=== PATIENT | male | born 1945 | race African-American/Black ===

== ENCOUNTER 2017-04-19 15:37 | Inpatient (IN) ==
[2017-04-19] MEDS ORDERED: SODIUM CHLORIDE 0.9% 1,000 ML IV STA (16:03)
[2017-04-19] MEDS ORDERED: NITROGLYCERIN 2% OINT 1 INCH/GM PACK TOP STA (16:03)
[2017-04-19] MEDS ORDERED: ASPIRIN 325 MG TABLET PO STA (16:03)
[2017-04-19] MEDS ORDERED: MORPHINE 2 MG/1 ML SYRINGE IV STA (16:03)
[2017-04-19] MEDS ORDERED: ONDANSETRON 4 MG/2 ML VIAL IV STA (16:03)
[2017-04-19] MEDS ORDERED: NITROGLYCERIN 2% OINT 1 INCH/GM PACK TOP ONE (16:20)
[2017-04-19] MEDS ORDERED: ONDANSETRON 4 MG/2 ML VIAL ONE (16:20)
[2017-04-19] MEDS ORDERED: MORPHINE 2 MG/1 ML SYRINGE ONE (16:21)
--- NOTE | 2017-04-19 16:22 | XRay Report ---
XR chest 1V portable Indication: Chest pain Comparison: 17 May 2016 Findings: The heart and mediastinum are stable in size and configuration with cardiac surgery changes. The pulmonary vascularity is slightly increased. No other lung infiltrates, effusions, pneumothorax or other abnormality is demonstrated. Impression: Slight increase pulmonary vascularity, could indicate mild cardiac decompensation. PROCEDURE INTERPRETED AT [facility] DEPARTMENT OF RADIOLOGY Final Report Signed by: Dr. Andrea Aranda
--- NOTE | 2017-04-19 16:36 | Emergency Department Note ---
Cynthia Sanchez Gwan, am scribing for, and in the presence of, Raúl Griffin MD 16:12. Elias Sanchez Robert M, MD, personally performed the services described in this documentation, ascribed by Sam Marie in my presence, and it is both accurate and complete 636 . Arrival - Arrival Chief Complaint: Chest Pain Stated Complaint: CHEST PAIN ED Nursing Triage Note: PT C/O CHEST PAIN SINCE 1200. PAIN BEGAN IN HIS BACK BETWEEN SHOULDER BLADES AND MOVED TO HIS FRONT, LOWER CHEST/EPIGASTRIC. + DIAPHORESIS AND NAUSEA AT ONSET OF PAIN BUT NOT OBSERVED ON EMS ARRIVAL. ASA 342MG PO GIVEN PER EMS. Mode of Arrival: Stretcher Limitations: No Limitations Source: Patient, Old Records Reviewed, RN Notes Reviewed Time Seen by Provider: 04/19/17 16:02 - History of Present Illness HPI Narrative: Patient is a 71 y/o black male, with a hx of RI and CABG, who presents to the ED with a c/o chest pain with an onset 1200 today. Patient stated that his discomfort began in his back between his shoulder blades and radiated to his chest . He describes his pain as sharp and said that his associated sxs have been diaphoresis and nausea. EMS confirmed that pt was given 342mg ASA en route with some relief. He confirmed that he has a PMHx of Appendectomy and Bypass performed by Dr. Byrd. He denies any vomiting, abd surgery or having this happen before. No other problems/complaints reported in ED. Onset (ago): hour(s) Consistency: constant Severity: moderate Allergies/Adverse Reactions: Allergies Allergy/AdvReac Type Severity Reaction Status Date / Time No Known Allergies Allergy Verified 04/19/17 15:54 Home Medications: Home Medications Medication Instructions Recorded Confirmed Type Bicalutamide [Casodex] 50 mg PO DAILY 05/08/16 05/08/16 History Omeprazole 20 mg PO DAILY 05/08/16 05/08/16 History Promethazine HCl 25 mg PO Q4-6H 05/08/16 05/08/16 History Tamsulosin [Flomax] 0.4 mg PO DAILY 05/08/16 05/08/16 History amLODIPine [Norvasc] 5 mg PO DAILY 05/08/16 05/08/16 History predniSONE [Dayron] 5 mg PO DAILY 05/08/16 05/08/16 History Theophylline ER Cap (24 Hr) 400 mg PO DAILY 05/15/16 05/15/16 History [Hal-24] Aspirin EC Tab 325 mg PO DAILY tablet 05/18/16 Rx Atorvastatin [Lipitor] 40 mg PO BEDTIME #30 tablet 05/18/16 Rx Bicalutamide [Casodex] 50 mg PO DAILY tablet 05/18/16 Rx Metoprolol Tartrate Tab [Lopressor 25 mg PO BID #60 tablet 05/18/16 Rx Tab] Tamsulosin [Flomax] 0.4 mg PO DAILY capsule 05/18/16 Rx Theophylline ER Cap (24 Hr) 400 mg PO DAILY capsule 05/18/16 Rx [Hal-24] amLODIPine [Norvasc] 5 mg PO DAILY tablet 05/18/16 Rx Review of System - Review of System 12 point system: reviewed and no additional remarkable complaints except as stated - Review of System Constitutional: Present: as per HPI, diaphoresis. Absent: chills, fever Eyes: Absent: discharge, pain Head/Ears/Nose/Throat: Absent: earache Respiratory: Absent: cough Cardiovascular: Present: as per HPI, chest pain Gastrointestinal: Present: as per HPI, nausea. Absent: abdominal pain, vomiting , diarrhea Genitourinary male: Absent: urgency Musculoskeletal: Present: as per HPI, back pain. Absent: arm pain, leg pain Skin: Absent: rash, lesions Neurological: Absent: headache, weakness Psychiatric: Absent: anxiety, depression Medical,Surgical,& Family Hx - Medical History Cardio: History of: Hypertension, [place] Respiratory: History of: Asthma Other: History of: Cancer (lymphatic) - Surgical History Cardiac Surgeries: Sugical HX of: Cardiac Catheterization, Cardiac Surgery (CABG ) Abdominal Surgeries: Surgical HX of: Appendectomy Reproductive Surgeries: Surgical HX of;: Prostate Surgery - Family History Family History: Reports;: Family Cancer (prostate ca brother and son), Family Diabetes (mother and brother), Family Hypertension (mother brother son) - Social History Smoking Status: Never smoker Frequency of Alcohol Use: None Type of Drug Use: None Exam Vital Signs: Vital Signs Temperature 97.2 F L 04/19/17 15:37 Pulse Rate 75 04/19/17 15:37 Respiratory Rate 18 04/19/17 16:06 Blood Pressure 156/74 04/19/17 15:37 O2 Sat by Pulse Oximetry 98 04/19/17 15:37 - General General appearance: alert, in no apparent distress - Head Head exam: Present: atraumatic, normocephalic - Eye Eye exam: Present: normal appearance, PERRL, EOMI - ENT ENT exam: Present: normal oropharynx, mucous membranes moist, TM's normal bilaterally, normal external ear exam - Neck Neck exam: Present: full ROM, trachea midline. Absent: tenderness - Chest Chest inspection: Present: symmetric chest wall rise, other (Patient has a scar in center of chest consistent with previous Bypass surgery. ). Absent: tenderness - Respiratory Respiratory exam: Present: normal lung sounds bilaterally. Absent: respiratory distress - Cardiovascular Cardiovascular exam: Present: regular rate, normal rhythm, normal heart sounds. Absent: murmur - Abdominal Exam Abdominal exam: Present: soft, normal bowel sounds, other (Patient has a scar to RLQ consistent with previous Appendectomy). Absent: tenderness - Extremities Exam Extremities exam: Present: full ROM. Absent: tenderness - Back Exam Back exam: Present: full ROM. Absent: tenderness - Neurological Exam Neurological exam: Present: alert, oriented X3, CN II-XII intact. Absent: motor sensory deficit - Psychiatric Psychiatric exam: Present: normal affect, normal mood - Skin Skin exam: Present: warm, dry, intact, normal color Course - Consultations Consultation #1: The hospitalist service will admit the patient. Time: 18:07 Results - Labs CBC & BMP: 04/19/17 16:39 04/19/17 16:39 Disposition Clinical Impression: Chest pain, Hypertension, Coronary artery disease, Dyslipidemia Case discussed with: patient, patient's family Disposition: Disch To Home/Self Care Condition: Stable Time of Disposition: 18:07
[2017-04-19 16:49] LABS: Basophils % 0.5 % (0.0-0.8); Eosinophils # 0.1 10*3/uL (0.0-0.87); Eosinophils % 1.5 % (0.00-10.9); Hematocrit 36.4 VOL% (42.0-52.0); Hemoglobin 12.3 GM/DL (14.0-18.0); Immature Granulocytes % 0.8 %; Immature Granulocytes Absolute 0.07 #; Lymphocytes # 0.6 10*3/uL (1.4-4.0); Lymphocytes % 7.1 % (21.2-54.2); Mean Corpuscular HGB Conc 33.8 GM/DL (32-36); Mean Corpuscular Hemoglobin 25 PG (27-34); Mean Corpuscular Volume 73.7 FL (87-102); Mean Platelet Volume 9.5 FL (9.6-12.0); Monocytes # 0.5 10*3/uL (0.11-0.8); Monocytes % 6.2 % (1.7-12.7); Neutrophils # 7.4 10*3/uL (1.4-7.4); Neutrophils % 83.9 % (38.7-73.9); Platelet Count 247 T/CUMM (130-400); Red Blood Count 4.94 MC/CUMM (3.8-5.5); White Blood Count 8.8 T/CUMM (4-12)
[2017-04-19 16:59] LABS: PT Patient Result 10.8 SECS
[2017-04-19 17:13] LABS: Albumin 3.5 G/DL (3.4-5.0); Bilirubin,Total 0.4 MG/DL (0.2-1.0); Magnesium 2.3 MG/DL (1.8-2.4); Osmolality,Calculated 280.5 MOS/KG (273-304); Potassium 3.3 MMOL/L (3.5-5.1); Total Protein 6.5 G/DL (6.4-8.3)
[2017-04-19 17:14] LABS: Apearance,Urine CLEAR (Clear); Bilirubin,Urine Negative (Negative); Blood, Urine Negative (Negative); Glucose,Urine (UA) Negative (Negative); Ketones,Urine Negative (Negative); Nitrite,Urine Negative (Negative); Protein,Urine Negative; RBC,Urine <1 /HPF (0-4); Urine Color Yellow (Yellow); Urine Specific Gravity 1.012 (1.001-1.035); Urine Urobilinogen < 2.0 EU/DL (0.2-1.0); WBC,Urine <1 /HPF (0-6)
--- NOTE | 2017-04-19 18:36 | CT Report ---
CT chest PE study Indication: Right-sided chest pain. CT CHEST WITH CONTRAST, PE PROTOCOL DLP: 435 mGy*cm. One or more of the following dose reduction techniques was used: Automated exposure control, adjustment of the mA and/or kV according the patient size, or use of iterative reconstruction techniques. Comparison: None Technique: Axial CT images of the chest were obtained during the pulmonary arterial phase of contrast injection. Coronal reconstructions were provided. Omnipaque 350, 80 cc. Findings: No pulmonary artery filling defects to the segmental level. Main pulmonary artery is normal in size. Heart size is normal. Postoperative changes median sternotomy are present. Subcarinal nodes are enlarged, 16 mm short axis. Bilateral hilar lymphadenopathy is present, largest node on the right 15 mm short axis and largest on the left 11 mm. There is a band of parenchymal scarring involving the right upper lobe laterally. Innumerable 5 and 6 mm pulmonary nodules are distributed throughout both lungs diffusely. There is peribronchial thickening in the lung bases, much worse on the right, with stranding extending to the posterior right lung base. At least one calcified granulomas present within the right middle lobe. Pleural spaces are clear. Limited views of the upper abdomen demonstrate hypodensities on both kidneys, likely cysts, largest is on the left measuring 33 mm. Calcified gallstone noted as well. Upper abdomen is otherwise unremarkable. Impression: 1. No evidence of PE. 2. Subcarinal and bilateral hilar lymphadenopathy. Interstitial lung disease with coarsened interstitial markings throughout, scarring of the right upper lobe tracking laterally, and innumerable subcentimeter pulmonary nodules bilaterally. Three-month follow-up CT chest necessary. 3. Right greater than left bibasilar peribronchial thickening with additional strand-like infiltrate in the posterior right lung base, consistent with pneumonitis. Suspect aspiration. 4. Calcified gallstone. 5. Renal cysts. PROCEDURE INTERPRETED AT [facility] DEPARTMENT OF RADIOLOGY Final Report Signed by: Anthony Treadwell M.D.
--- NOTE | 2017-04-19 18:55 | Hospitalist History & Physical ---
Assessment and Plan (1) Epigastric abdominal pain Status: Acute Assessment and plan: protonix bid, GI cocktail Current Visit: Yes (2) Asthma with exacerbation Status: Chronic Assessment and plan: nasima nguyễn Current Visit: No Qualifiers: Asthma severity: mild intermittent Qualified Code(s): J45.21 - Mild intermittent asthma with (acute) exacerbation (3) Hypertension Status: Chronic Assessment and plan: cont metoprolol and losartan, need home meds verified Current Visit: Yes Qualifiers: Hypertension type: essential hypertension Qualified Code(s): I10 - Essential (primary) hypertension (4) Coronary artery disease Status: Chronic Assessment and plan: serial troponins, EKGs Current Visit: Yes Qualifiers: Coronary Disease-Associated Artery/Lesion type: [place] artery [place] vs. transplanted heart: [place] heart History of Present Illness Chief complaint: epigastric pain History of present illness: Mr. West is a 71 year old black male, with a hx of [place] and CABG, who presents to the ED with a c/o epigastric pain with an onset 1200 today. Patient stated that his discomfort began in his back between his shoulder blades then resolved. He describes his pain as sharp pain that did not improve with belching. He has had EGD at [facility] in the past. Patient has some questionable pulmonary nodules on chest x-ray. chest CT is done but reading is pending. Patient reports seeing Dr. Navas last week they are already aware of the pulmonary nodules and Dr. Navas feels they are scar tissue and no further workup is necessary. Home Medications Medication Instructions Recorded Confirmed Type Bicalutamide [Casodex] 50 mg PO DAILY 05/08/16 05/08/16 History Omeprazole 20 mg PO DAILY 05/08/16 05/08/16 History Promethazine HCl 25 mg PO Q4-6H 05/08/16 05/08/16 History Tamsulosin [Flomax] 0.4 mg PO DAILY 05/08/16 05/08/16 History amLODIPine [Norvasc] 5 mg PO DAILY 05/08/16 05/08/16 History predniSONE [Dayron] 5 mg PO DAILY 05/08/16 05/08/16 History Theophylline ER Cap (24 Hr) 400 mg PO DAILY 05/15/16 05/15/16 History [Hal-24] Aspirin EC Tab 325 mg PO DAILY tablet 05/18/16 Rx Atorvastatin [Lipitor] 40 mg PO BEDTIME #30 tablet 05/18/16 Rx Bicalutamide [Casodex] 50 mg PO DAILY tablet 05/18/16 Rx Metoprolol Tartrate Tab [Lopressor 25 mg PO BID #60 tablet 05/18/16 Rx Tab] Tamsulosin [Flomax] 0.4 mg PO DAILY capsule 05/18/16 Rx Theophylline ER Cap (24 Hr) 400 mg PO DAILY capsule 05/18/16 Rx [Hal-24] amLODIPine [Norvasc] 5 mg PO DAILY tablet 05/18/16 Rx Allergies Allergy/AdvReac Type Severity Reaction Status Date / Time No Known Allergies Allergy Verified 04/19/17 15:54 Medical,Surgical,& Family Hx - Medical History Cardio: History of: Hypertension, [place] Respiratory: History of: Asthma Other: History of: Cancer (lymphatic) - Surgical History Cardiac Surgeries: Sugical HX of: Cardiac Catheterization, Cardiac Surgery (CABG ) Abdominal Surgeries: Surgical HX of: Appendectomy Reproductive Surgeries: Surgical HX of;: Prostate Surgery - Family History Family History: Reports;: Family Cancer (prostate ca brother and son), Family Diabetes (mother and brother), Family Hypertension (mother brother son) - Social History Smoking Status: Never smoker Frequency of Alcohol Use: None Type of Drug Use: None Marital Status: Lives With:: Spouse Functional capacity: independent ambulation - Constitutional Constitutional: Present: headache(s). Absent: fatigue, fever(s), weakness - EENT Eyes: Absent: blurry vision, diplopia Ears: Absent: decreased hearing, ear discharge Nose, mouth and throat: Present: headache(s). Absent: sore throat - Cardiovascular Cardiovascular: Absent: chest pain at rest, chest pain with activity, dyspnea, dyspnea on exertion, edema - Respiratory Respiratory: Absent: dyspnea, dyspnea on exertion - Gastrointestinal Gastrointestinal: Present: abdominal pain, heartburn. Absent: constipation, diarrhea, hematochezia, nausea, vomiting - Genitourinary Genitourinary: Absent: difficulty urinating, dysuria - Neurological Neurological: Present: headache(s). Absent: syncope - Psychiatric Psychiatric: Absent: anxiety, depression - Endocrine Endocrine: Absent: cold intolerance, fatigue - Hematologic/Lymphatic Hematologic/Lymphatic: Absent: easy bleeding, easy bruising Exam - Constitutional Vitals: Period Temp Pulse Resp BP Sys/Perez Pulse Ox Last 24 Hr 97.2 F-97.2 F 65-79 16-18 111-181/59-82 96-100 General appearance: normal weight, no acute distress - Head Head exam: Present: normal inspection, normocephalic - Eye Eye exam: Present: EOMI. Absent: scleral icterus Pupils: Present: ANUJA, normal accommodation - ENT ENT exam: Present: normal exam, normal external ear exam - Neck Neck exam: Absent: lymphadenopathy, thyromegaly - Respiratory Respiratory exam: Present: clear to auscultation bilaterally. Absent: rhonchi, wheezes - Cardiovascular Cardiovascular exam: Present: regular rate and rhythm. Absent: systolic murmur - GI/Abdominal GI/Abdominal exam: Present: normal bowel sounds, tenderness, soft - Extremities Exam Extremities exam: Present: normal inspection, normal capillary refill - Neurological Exam Neurological exam: Present: alert, oriented X3, CN II-XII intact, reflexes normal. Absent: motor sensory deficit - Psychiatric Psychiatric exam: Present: normal affect, normal mood - Skin Skin exam: Present: normal color, warm Results - Labs CBC & BMP: 04/19/17 16:39 04/19/17 16:39 Lab Results: I have reviewed the past 24 hour labs - EKG EKG shows: sinus rhythm (qwaves in inferior leads ) - Diagnostic Findings Procedure: Chest x-ray: report reviewed by me (pulmonary edema ), CT - chest: report reviewed by me (pul nodules, hilar lymphadeonpathy and ILD, no PE)
[2017-04-19] MEDS ORDERED: POTASSIUM CHLORIDE 20 MEQ TABLET PO ONE (19:15)
[2017-04-19] MEDS ORDERED: MAGNESIUM HYDROXIDE SUSP 30 ML UDCUP PO PRN (20:06)
[2017-04-19] MEDS ORDERED: BISACODYL 5 MG TABLET PO PRN (20:06)
[2017-04-19] MEDS ORDERED: ONDANSETRON 4 MG/2 ML VIAL IV PRN (20:06)
[2017-04-19] MEDS ORDERED: ZALEPLON 5 MG CAPSULE PO PRN (20:06)
[2017-04-19] MEDS ORDERED: POTASSIUM CHLORIDE 20 MEQ TABLET PO PRN ×2 (20:06)
[2017-04-19] MEDS ORDERED: ALUM/MAG/SIMETH/LIDO VISC 1:1 30 ML BOTTLE PO STA (20:15)
[2017-04-19] MEDS: MOMETASONE/FORMOTEROL 200-5 INHALER 8.8 GM INH SCH (21:35)
[2017-04-19] MEDS: ENOXAPARIN 40 MG/0.4 ML SYRINGE SUBCUT SCH (21:36)
[2017-04-19] MEDS: ATORVASTATIN 40 MG TABLET PO SCH (21:36)
[2017-04-19] MEDS: METOPROLOL TARTRATE 25 MG TABLET PO SCH (21:36)
[2017-04-19] MEDS: PANTOPRAZOLE 40 MG TABLET PO SCH (21:36)
[2017-04-19] MEDS: ALBUTEROL 0.63 MG/3 ML NEB RESP TX SCH (23:00)
[2017-04-20 02:40] LABS: Risk Ratio 4.23
[2017-04-20] MEDS: ALBUTEROL 0.63 MG/3 ML NEB RESP TX SCH ×6 (03:00→23:57)
--- NOTE | 2017-04-20 06:19 | EKG Report ---
Stationary ECG Study [facility] Test Date: 04/20/2017 2:08:13 AM Pat Name: HIRO MURDOCK Department: Room: 421 Gender: M Document Review Attorney: DEVANG : 1945 Requested by: Megan Suárez Order Number: [id number] Reading MD: MARITZA SINGLETARY Intervals [place] Rate: 57 P: 12 [place]: 146 QRS: 35 QRSD: 105 T: -27 QT: 442 QTc: 435 Interpretive Statements SINUS RHYTHM NONSPECIFIC T-WAVE ABNORMALITY Electronically Signed On 04-21-17 07:59:47 CDT by MARITZA SINGLETARY [email or web address]
--- NOTE | 2017-04-20 06:21 | EKG Report ---
Stationary ECG Study [facility] Test Date: 04/19/2017 11:14:49 PM Pat Name: HIRO MURDOCK Department: Room: 421 Gender: M Advertising Editor: DEVANG : 1945 Requested by: Megan Suárez Order Number: [id number] Reading MD: KELLIE SEPULVEDA Intervals [place] Rate: 57 P: 48 [place]: 145 QRS: 39 QRSD: 98 T: 86 QT: 436 QTc: 430 Interpretive Statements SINUS RHYTHM Electronically Signed On 04-20-17 17:13:35 CDT by KELLIE SEPULVEDA [email or web address]
--- NOTE | 2017-04-20 06:21 | EKG Report ---
Stationary ECG Study [facility] Test Date: 04/19/2017 8:40:30 PM Pat Name: HIRO MURDOCK Department: Room: 421 Gender: M New Accounts Banking Representative: DEVANG : 1945 Requested by: Megan Suárez Order Number: [id number] Reading MD: KELLIE SEPULVEDA Intervals [place] Rate: 71 P: 48 NE: 135 QRS: 21 QRSD: 101 T: 106 QT: 394 QTc: 416 Interpretive Statements SINUS RHYTHM NONSPECIFIC T-WAVE ABNORMALITY Electronically Signed On 04-20-17 17:10:53 CDT by KELLIE SEPULVEDA [email or web address]
[2017-04-20] MEDS: BICALUTAMIDE 50 MG TABLET PO SCH (08:44)
[2017-04-20] MEDS: LOSARTAN 50 MG TABLET PO SCH (08:44)
[2017-04-20] MEDS: TAMSULOSIN 0.4 MG CAPSULE PO SCH (08:44)
[2017-04-20] MEDS: PANTOPRAZOLE 40 MG TABLET PO SCH ×2 (08:45→20:50)
[2017-04-20] MEDS: METOPROLOL TARTRATE 25 MG TABLET PO SCH ×2 (08:45→20:50)
[2017-04-20] MEDS: MOMETASONE/FORMOTEROL 200-5 INHALER 8.8 GM INH SCH ×2 (08:45→20:51)
--- NOTE | 2017-04-20 09:07 | EKG Report ---
Stationary ECG Study [facility] Test Date: 04/19/2017 3:43:41 PM Pat Name: HIRO MURDOCK Department: Room: 421 Gender: M Load Dropper: : 1945 Requested by: Raúl Griffin Order Number: [id number] Reading MD: KELLIE SEPULVEDA Intervals [place] Rate: 76 P: 48 [place]: 134 QRS: 17 QRSD: 113 T: 93 QT: 313 QTc: 344 Interpretive Statements SINUS RHYTHM POSSIBLE INFERIOR MYOCARDIAL INFARCTION, PROBABLY OLD Electronically Signed On 04-20-17 17:06:39 CDT by KELLIE SEPULVEDA [id number]
--- NOTE | 2017-04-20 10:08 | Gastrointestinal Consult Note ---
<Jihan Bajwa - Last Filed: 04/20/17 09:45> Assessment and Plan (1) Epigastric abdominal pain Status: Acute Assessment and plan: 04/20-sudden onset of epigastric pain radiating to back between shoulder blades with prior history of GERD. History of esophageal stricture in the past. Not to be felt of cardiac origin at this time. Denies dysphagia. Will consider EGD on tomorrow to further evaluate. [facility] records pending from recent endoscopy. Plan addendum followed by Dr. Rosales. Current Visit: Yes History of Present Illness Chief complaint: Epigastric pain History of present illness: Mr. West is a 71 year old male who was admitted to the hospital with onset of epigastric pain. Pt is at bedside and assists in history taking. Patient was in usual state of health until yesterday afternoon. Patient states that shortly after eating lunch yesterday he had a fairly sudden onset of pain in his epigastric region that radiated around to his back and into his shoulder blades. He states he also has some nausea however no vomiting associated with this. Patient has a history of coronary artery disease with a CABG in the past year and his states that she became concerned due to his prior history with this. The pain began to ease off however she decided to bring him into the ER for further evaluation regardless. Upon evaluation, patient was felt that this was not of cardiac origin therefore GI consult for further evaluation. Patient has a long-standing history of GERD and as of recent has had his medication changed due to not controlled. He was recently placed on AcipHex by his PCP. Patient states that the pain he had on yesterday felt very similar to the GERD that he has had in the past. She denies any other symptoms associated with this including palpitations or shortness of breath. Patient has a prior history of as well as esophageal stricture with dilation in the past. He has most recently been seen at [facility] for his GI evaluations however these records are pending at this time. He has a prior history of lymphoma, head and neck cancer however he has been in remission from this for many years, following radiation treatment initially. He also has a recent history of prostate cancer with radiation treatment last year and now currently in remission from this as well. Denies any melena, hematochezia, recent weight loss. Denies any dysphagia. Notation also of pulmonary nodules on chest x-ray with chest CT showing pneumonitis, possibly aspiration origin, and calcified gallstone. He is currently on Lovenox injections. Home Medications Medication Instructions Recorded Confirmed Type Omeprazole 20 mg PO DAILY 05/08/16 04/19/17 History Theophylline ER Cap (24 Hr) 400 mg PO DAILY 05/15/16 04/19/17 History [Hal-24] Aspirin EC Tab 325 mg PO DAILY tablet 05/18/16 04/19/17 Rx Bicalutamide [Casodex] 50 mg PO DAILY tablet 05/18/16 04/19/17 Rx Tamsulosin [Flomax] 0.4 mg PO DAILY capsule 05/18/16 04/19/17 Rx Furosemide Tab [Lasix Tab] 40 mg PO DAILY 04/19/17 04/19/17 History Potassium Chloride 20 meq PO DAILY 04/19/17 04/19/17 History Rabeprazole Sodium 20 mg PO DAILY 04/19/17 04/19/17 History Allergies Allergy/AdvReac Type Severity Reaction Status Date / Time No Known Allergies Allergy Verified 04/19/17 20:40 Medical,Surgical,& Family Hx - Medical History Cardio: History of: Hypertension, [place] Neurology: No history of: Dementia, Seizures, TIA Respiratory: History of: Asthma Gastrointestinal: History of: GERD Other: History of: Cancer (lymphatic, prostate) - Surgical History Cardiac Surgeries: Sugical HX of: Cardiac Catheterization, Cardiac Surgery ( CABG May 10 2016) Abdominal Surgeries: Surgical HX of: Appendectomy, Colonoscopy (2015), EGD (2015 ) Reproductive Surgeries: Surgical HX of;: Prostate Surgery (Radiation) - Family History Family History: Reports;: Family Cancer (prostate ca brother and son), Family Diabetes (mother and brother), Family Hypertension (mother brother son) - Social History Smoking Status: Never smoker Frequency of Alcohol Use: None Type of Drug Use: None 12 point system: reviewed and no additional remarkable complaints except as stated - Constitutional Constitutional: Present: as per HPI - EENT Eyes: Present: as per HPI Ears: Present: as per HPI Nose, mouth and throat: Present: as per HPI - Cardiovascular Cardiovascular: Present: as per HPI - Respiratory Respiratory: Present: as per HPI - Gastrointestinal Gastrointestinal: Present: as per HPI, abdominal pain (Epigastric pain), heartburn - Genitourinary Genitourinary: Present: as per HPI - Musculoskeletal Musculoskeletal: Present: as per HPI - Neurological Neurological: Present: as per HPI - Psychiatric Psychiatric: Present: as per HPI - Endocrine Endocrine: Present: as per HPI - Hematologic/Lymphatic Hematologic/Lymphatic: Present: as per HPI Exam - Constitutional Vitals: Period Temp Pulse Resp BP Sys/Perez Pulse Ox Last 24 Hr 97.2 F-98.7 F 58-79 16-20 94-181/55-82 92-100 General appearance: normal weight, no acute distress - Head Head exam: Present: normal inspection, normocephalic - Eye Eye exam: Present: other (Lids and conjunctive are unremarkable). Absent: scleral icterus - ENT ENT exam: Present: normal exam, normal oropharynx - Neck Neck exam: Present: normal inspection - Respiratory Respiratory exam: Present: clear to auscultation bilaterally. Absent: rales, rhonchi, wheezes - Cardiovascular Cardiovascular exam: Present: regular rate and rhythm. Absent: diastolic murmur , JVD, systolic murmur - GI/Abdominal GI/Abdominal exam: Present: normal bowel sounds, soft. Absent: ascites, distended, mass, organomegaly, tenderness - Extremities Exam Extremities exam: Present: normal inspection, full ROM - Back Exam Back exam: Present: normal inspection - Neurological Exam Neurological exam: Present: alert, oriented X3 - Psychiatric Psychiatric exam: Present: normal affect, normal mood - Skin Skin exam: Present: normal color, warm, dry Results - Labs CBC & BMP: 04/19/17 16:39 04/19/17 16:39 Lab Results: I have reviewed the past 24 hour labs <Yony Rosales - Last Filed: 04/20/17 18:03> History of Present Illness Chief complaint: 3030 History of present illness: Mr. West is a 71 year old male Exam - Constitutional Vitals: Period Temp Pulse Resp BP Sys/Perez Pulse Ox Last 24 Hr 97.6 F-98.7 F 58-75 10-20 94-128/55-69 92-99 Results - Labs CBC & BMP: 04/19/17 16:39 04/19/17 16:39
[2017-04-20] MEDS: LEVOFLOXACIN INJ 500 MG in PREMIX 1 EACH IV SCH (10:25)
--- NOTE | 2017-04-20 13:35 | Hospitalist Progress Note ---
Assessment and Plan - Time spent with patient Time spent with patient: Greater than 30 minutes (1) Epigastric abdominal pain Status: Acute Assessment and plan: Currently with no pain. Abdominal exam unremarkable. Reports relief with GI cocktail. GI on board. Current Visit: Yes (2) Coronary artery disease Status: Chronic Assessment and plan: Troponins serially negative. Current Visit: Yes Qualifiers: Coronary Disease-Associated Artery/Lesion type: [place] artery [place] vs. transplanted heart: [place] heart (3) Dyslipidemia Status: Chronic Assessment and plan: Continue medication. Current Visit: Yes (4) Hypertension Status: Chronic Assessment and plan: Continue medications. Current Visit: Yes Qualifiers: Hypertension type: essential hypertension Qualified Code(s): I10 - Essential (primary) hypertension Hospitalist: Subjective Interval history: Admitted overnight for abdominal pain. No complaints currently. Denies abdominal pain. Exam - Constitutional Vitals: Period Temp Pulse Resp BP Sys/Perez Pulse Ox Last 24 Hr 97.2 F-98.7 F 58-79 10-20 94-181/55-82 92-100 General appearance: no acute distress - Head Head exam: Present: normocephalic, atraumatic - Eye Eye exam: Present: EOMI Pupils: Present: ANUJA - ENT ENT exam: Present: normal exam - Neck Neck exam: Present: normal inspection - Respiratory Respiratory exam: Present: clear to auscultation bilaterally. Absent: rhonchi, wheezes - Cardiovascular Cardiovascular exam: Present: regular rate and rhythm. Absent: gallop, rubs, systolic murmur - GI/Abdominal GI/Abdominal exam: Present: normal bowel sounds, soft. Absent: distended, firm , guarding, tenderness, rebound - Extremities Exam Extremities exam: Present: normal inspection. Absent: calf tenderness, edema Results - Labs CBC & BMP: 04/19/17 16:39 04/19/17 16:39 Lab Results: I have reviewed the past 24 hour labs
[2017-04-20] MEDS: ENOXAPARIN 40 MG/0.4 ML SYRINGE SUBCUT SCH (20:49)
[2017-04-20] MEDS: ATORVASTATIN 40 MG TABLET PO SCH (20:50)
[2017-04-21] MEDS: ALBUTEROL 0.63 MG/3 ML NEB RESP TX SCH ×4 (04:02→14:03)
[2017-04-21] MEDS: LEVOFLOXACIN INJ 500 MG in PREMIX 1 EACH IV SCH (10:03)
[2017-04-21] MEDS ORDERED: PHENYLEPHRINE 1 MG/10 ML SYRINGE IV ONE (12:18)
[2017-04-21] MEDS ORDERED: PROPOFOL 200 MG/20 ML VIAL IV ONE (12:18)
[2017-04-21] MEDS ORDERED: LIDOCAINE 2% 5 ML VIAL ONE (12:18)
--- NOTE | 2017-04-21 12:27 | History and Physical Update ---
History and Physical Update - Physical Exam Mental Status: alert and oriented Heart: regular rate and rhythm Lung: clear to auscultation Abdomen: within normal limits Vitals: within normal limits
--- NOTE | 2017-04-21 12:29 | Operative Note ---
Date of procedure: 04/21/17 Pre-op diagnosis: Atypical chest pain Procedure: EGD with esophageal dilatation 71-year-old black male made with atypical chest pain now for upper endoscopy to further evaluate Informed consent was obtained He was sedated with MAC anesthesia anesthesia protocol. Patient placed left lateral decubitus position the Olympus flexible video upper endoscope is her lower cavity direct the esophagus intubated. Findings: Esophagus-normal proximal mid esophageal mucosa distal esophagus with small to moderate hiatal hernia distal esophageal stricture with no esophagitis varices or Givens's seen. Stomach-normal insufflation normal mucosa to direct retroflexed views of the body fundus cardia and antrum the stomach. Pylorus-normal Duodenum-normal for the bulb duodenum to the third portion of the duodenum. The scope was removed and subsequent 54 [place] bougie was passed without difficulty with no resistance and no blood present station. Patient discharge recovery in good condition Postop diagnosis: 1. Gastroesophageal reflux disease-continue PPI treatment 2. Esophageal stricture-repeat dilatation on as-needed basis. 3. Okay to discharge from my standpoint. I will sign off call if needed. Anesthesia: [facility] Surgeon / Physician: Yony Rosales Estimated blood loss: none Specimens: none sent Condition: stable Disposition: post procedure unit Results - Labs CBC & BMP: 04/19/17 16:39 04/19/17 16:39 Discharge Plan - Discharge Medications No Action Omeprazole 20 mg PO DAILY Theophylline ER Cap (24 Hr) [Hal-24] 400 mg PO DAILY Aspirin EC Tab 325 mg PO DAILY tablet Bicalutamide [Casodex] 50 mg PO DAILY tablet Tamsulosin [Flomax] 0.4 mg PO DAILY capsule Potassium Chloride 20 meq PO DAILY Furosemide Tab [Lasix Tab] 40 mg PO DAILY Rabeprazole Sodium 20 mg PO DAILY - Follow Up or Referral - Forms/Instructions
--- NOTE | 2017-04-21 12:38 | Anesthesia Post-Op ---
Anesthesia Post OP - Post Ansesthetic Evaluation Patient seen in post op: Yes Resp: within normal limits CV: within normal limits Mental: within normal limits Temp: within normal limits [id number]: within normal limits Nausea and Vomiting: within normal limits Pain: within normal limits
[2017-04-21] MEDS: MOMETASONE/FORMOTEROL 200-5 INHALER 8.8 GM INH SCH (13:55)
--- NOTE | 2017-04-21 14:24 | Discharge Summary ---
Hospital Course - Hospital Course Hospital Course: Mr. West presented with epigastric pain. Patient had a CT of his chest with pulmonary embolism protocol. No pulmonary embolism was identified. This revealed innumerable subcentimeter pulmonary nodules. Recommend a 3 month follow-up for repeat CT of chest. Furthermore there were findings of pneumonitis and the patient was initiated on IV antibiotics. He was seen in consultation by gastroenterology who performed an EGD which revealed an esophageal stricture that was dilated and evidence of GERD. Patient reported no epigastric pain by discharge. He was doing well and had no complaints. 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 I spent 35 minutes coordinating this discharge. - Time spent with patient Time with patient DS: Greater than 30 minutes Diagnosis - Discharge Diagnosis (1) Epigastric abdominal pain Status: Acute (2) Coronary artery disease Status: Chronic (3) Dyslipidemia Status: Chronic (4) Hypertension Status: Chronic Discharge Plan - Discharge Data Disposition: Disch To Home/Self Care Condition at Discharge: Stable Discharge Diet: advance to your usual diet Activity: resume usual activities as tolerated - Discharge Medications New Metoprolol Tartrate Tab [Lopressor Tab] 25 mg PO BID #60 tablet Pantoprazole Tab [Protonix Tab] 40 mg PO BID #60 tablet Levofloxacin Tab [Levaquin Tab] 500 mg PO DAILY #7 tablet Continue Theophylline ER Cap (24 Hr) [Hal-24] 400 mg PO DAILY Aspirin EC Tab 325 mg PO DAILY tablet Bicalutamide [Casodex] 50 mg PO DAILY tablet Tamsulosin [Flomax] 0.4 mg PO DAILY capsule Potassium Chloride 20 meq PO DAILY Furosemide Tab [Lasix Tab] 40 mg PO DAILY Discontinued Omeprazole 20 mg PO DAILY Rabeprazole Sodium 20 mg PO DAILY - Follow Up or Referral Follow Up: Nic Navas MD [Physician] - 07/18/17 - Forms/Instructions Exam - Constitutional Vitals: Period Temp Pulse Resp BP Sys/Perez Pulse Ox Last 24 Hr 98.2 F-99.9 F 64-77 - 99-141/54-76 90-100 General appearance: normal weight, no acute distress - Head Head exam: Present: normal inspection, normocephalic, atraumatic - Eye Eye exam: Present: EOMI Pupils: Present: ANUJA - ENT ENT exam: Present: normal exam - Neck Neck exam: Present: normal inspection - Respiratory Respiratory exam: Present: clear to auscultation bilaterally. Absent: accessory muscle use, prolonged expiratory phase, wheezes - Cardiovascular Cardiovascular exam: Present: regular rate and rhythm. Absent: bradycardia, irregular rhythm, systolic murmur - GI/Abdominal GI/Abdominal exam: Present: normal bowel sounds. Absent: ascites, hypoactive bowel sounds, tenderness - Extremities Exam Extremities exam: Present: normal inspection DS: Provider Date of admission: 04/20/17 13:31 Primary care physician: . No PCP Attending physician on admission: Anthony Tsang MD Consults: 04/19/17 18:51 Consult to Physician [CONS] Routine Comment: epigastric discomfort Consulting Provider: Yony Rosales Consulting Provider Notified: Yes When should Consulting Provider be notified: Now Consult to Specialist Group: Gastroenterology When should Consulting Provider be notified: Now Person Notified: JENNIFER Date Notified: 04/20/17 Time Notified: 10:00 Discharging clinician: Latoya Harmon MD Expected date of discharge: 04/21/17
[2017-04-21] MEDS: BICALUTAMIDE 50 MG TABLET PO SCH (14:54)
[2017-04-21] MEDS: LOSARTAN 50 MG TABLET PO SCH (14:55)
[2017-04-21] MEDS: PANTOPRAZOLE 40 MG TABLET PO SCH (14:55)
[2017-04-21] MEDS: METOPROLOL TARTRATE 25 MG TABLET PO SCH (14:55)
[2017-04-21] MEDS: TAMSULOSIN 0.4 MG CAPSULE PO SCH (14:55)
[2017-04-21 16:27] VITALS: BP 125/71
== END 2017-04-21 15:45 | disposition home or self-care (01) | DRG 391 ==
LOC: EDBD → EDUNIT# → N.EDINP 15:37 → N.ED 15:37 → SUATTDRO 18:07 → N.4E 18:35 → N.TELES 18:35 → N.4E 19:50
PROVIDERS: ADMIT Internal Medicine; ATTEND Internal Medicine

== ENCOUNTER 2019-10-01 17:19 | Inpatient (IN) ==
[2019-10-01] MEDS ORDERED: FUROSEMIDE 40 MG/4 ML VIAL IV STA (18:08)
[2019-10-01] MEDS ORDERED: methylPREDNISolone SOD SUC 125 MG/2 ML VIAL IV STA (18:08)
[2019-10-01] MEDS ORDERED: ONDANSETRON 4 MG/2 ML VIAL IV STA (18:08)
[2019-10-01 18:21] LABS: Basophils # 0.1 10*3/uL (0.0-0.2); Basophils % 0.4 % (0.0-0.8); Eosinophils % 0.3 % (0.00-10.9); Hematocrit 41.4 VOL% (42.0-52.0); Hemoglobin 13.1 GM/DL (14.0-18.0); Immature Granulocytes % 0.7 %; Immature Granulocytes Absolute 0.09 #; Lymphocytes # 0.5 10*3/uL (1.4-4.0); Lymphocytes % 4.3 % (21.2-54.2); Mean Corpuscular HGB Conc 31.6 GM/DL (32-36); Mean Corpuscular Volume 72.8 FL (87-102); Monocytes % 5.4 % (1.7-12.7); Neutrophils % 88.9 % (38.7-73.9); Platelet Count 194 T/CUMM (130-400); Red Blood Count 5.69 MC/CUMM (3.8-5.5); Red Cell Distribution Width 16.5 % (9.3-17.3); White Blood Count 12.4 T/CUMM (4-12)
[2019-10-01] MEDS ORDERED: PIPERACILLIN/TAZOBACTAM 3,375 MG in SODIUM CHLORIDE 0.9% 100 ML IV STA (18:24)
[2019-10-01] MEDS ORDERED: ALBUTEROL NEB SOLN 5 MG/ML 20 ML/BOTTLE RESP TX SCH (18:30)
[2019-10-01 18:36] LABS: ABG Base Excess 2.7 MMOL/L (-2.5-2.5); ABG HCO3 26.7 MMOL/L (20-26); ABG Oxygen Saturation 94.8 % (95-100); ABG PCO2 40.5 MM HG (35-48); ABG PH 7.434 (7.35-7.45); ABG PO2 68.4 MM HG (80-95); ABG TCO2 23.6 MMOL/L (23-27)
[2019-10-01 18:44] LABS: Albumin 2.7 G/DL (3.4-5.0); Bilirubin,Total 0.6 MG/DL (0.2-1.0); Calcium 8.6 MG/DL (8.5-10.1); Osmolality,Calculated 286.3 MOS/KG (273-304); Total Protein 7.7 G/DL (6.4-8.3)
[2019-10-01 19:09] LABS: INR 1.1; PT Patient Result 12.2 SECS (9.6-12.2)
[2019-10-01 19:29] LABS: Troponin I 0.037 NG/ML (0.00-0.045)
[2019-10-01 19:34] LABS: Anisocytosis 1+; Band Neutrophils 8 % (0-10); Lymphocytes 9 % (20-55); Microcytosis 1+; Platelet Estimate Normal; Segmented Neutrophils 79 % (50-85); Total Cells Counted 100
[2019-10-01] MEDS ORDERED: MECLIZINE 25 MG TABLET PO PRN (20:06)
[2019-10-01] MEDS ORDERED: FUROSEMIDE 40 MG TABLET PO PRN (20:06)
[2019-10-01] MEDS ORDERED: ACETAMINOPHEN 325 MG TABLET PO PRN (20:08)
[2019-10-01] MEDS ORDERED: LEVOFLOXACIN INJ 750 MG in PREMIX 1 EACH IV SCH (22:00)
[2019-10-01] MEDS: ROSUVASTATIN 20 MG TABLET PO SCH (22:25)
[2019-10-01] MEDS: METOPROLOL TARTRATE 25 MG TABLET PO SCH (22:26)
[2019-10-01] MEDS: ASPIRIN EC 81 MG TABLET PO SCH (22:26)
[2019-10-01] MEDS: ENOXAPARIN 40 MG/0.4 ML SYRINGE SUBCUT SCH (22:49)
[2019-10-01 23:36] LABS: Apearance,Urine CLEAR (Clear); Bacteria,Urine Occasional /HPF (Few); Bilirubin,Urine Negative (Negative); Blood, Urine Moderate mg/dL (Negative); Glucose,Urine (UA) Negative (Negative); Hyaline Casts,Urine 4 /LPF (0-3); Ketones,Urine Negative (Negative); Mucus,Urine Occasional /LPF (Occasional); Nitrite,Urine Negative (Negative); Protein,Urine Negative; Squamous Epithelial Cell,Urine Occasional /HPF (0-10); Urine Color Amber (Yellow); Urine Specific Gravity 1.008 (1.001-1.035); Urine Urobilinogen < 2.0 EU/DL (0.2-1.0); WBC,Urine 1 /HPF (0-6)
[2019-10-01 23:51] LABS: Barbiturates Screen,Urine Negative (Negative); Benzodiazepines Screen,Urine Negative (Negative); Cannabinoid Screen,Urine Negative (Negative); Opiate Screen,Urine Negative (Negative); Phencyclidine Screen,Urine Negative (Negative)
[2019-10-02] MEDS: ALBUTEROL/IPRATROPIUM 3 ML NEB RESP TX SCH ×4 (00:20→18:40)
[2019-10-02] MEDS: SODIUM CHLOR 0.45% KCL 20 MEQ 20 MEQ/1,000 ML BAG IV SCH ×2 (00:25→18:05)
[2019-10-02 02:23] LABS: Basophils % 0.3 % (0.0-0.8); Hematocrit 40.5 VOL% (42.0-52.0); Hemoglobin 12.9 GM/DL (14.0-18.0); Immature Granulocytes % 0.6 %; Immature Granulocytes Absolute 0.07 #; Lymphocytes # 0.3 10*3/uL (1.4-4.0); Lymphocytes % 2.7 % (21.2-54.2); Mean Corpuscular HGB Conc 31.9 GM/DL (32-36); Mean Corpuscular Volume 72.5 FL (87-102); Monocytes % 2.3 % (1.7-12.7); Neutrophils % 94.1 % (38.7-73.9); Platelet Count 189 T/CUMM (130-400); Red Blood Count 5.59 MC/CUMM (3.8-5.5); Red Cell Distribution Width 16.1 % (9.3-17.3); White Blood Count 11.5 T/CUMM (4-12)
[2019-10-02] MEDS: PIPERACILLIN/TAZOBACTAM 3,375 MG in SODIUM CHLORIDE 0.9% 100 ML IV SCH ×2 (02:39→09:41)
[2019-10-02] MEDS: methylPREDNISolone SOD SUC 125 MG/2 ML VIAL IV SCH ×4 (02:39→23:55)
[2019-10-02 02:43] LABS: Albumin 2.7 G/DL (3.4-5.0); Bilirubin,Total 0.7 MG/DL (0.2-1.0); Total Protein 7.6 G/DL (6.4-8.3)
[2019-10-02 02:55] LABS: Calcium 8.9 MG/DL (8.5-10.1)
[2019-10-02 02:56] LABS: Osmolality,Calculated 287.4 MOS/KG (273-304)
[2019-10-02 03:28] LABS: Risk Ratio 1.44; Thyroid Stimulating Hormone 0.185 uIU/ml (0.358-3.74); VLDL CHOLESTEROL 10.4 MG/DL
[2019-10-02 03:30] LABS: Band Neutrophils 6 % (0-10); Lymphocytes 4 % (20-55); Segmented Neutrophils 85 % (50-85); Total Cells Counted 100
[2019-10-02 03:40] LABS: Hypochromasia 1+; Ovalocytes 2+; Platelet Estimate Normal; Poikilocytosis Few; Schistocytes Few; Target Cells Few
[2019-10-02 04:27] LABS: Allen Test Positive
[2019-10-02 04:38] LABS: ABG Base Excess 4.7 MMOL/L (-2.5-2.5); ABG HCO3 28.5 MMOL/L (20-26); ABG Oxygen Saturation 95.2 % (95-100); ABG PCO2 44.1 MM HG (35-48); ABG PH 7.434 (7.35-7.45); ABG PO2 69.8 MM HG (80-95)
[2019-10-02] MEDS: POTASSIUM CHLORIDE 20 MEQ TABLET PO SCH (09:18)
[2019-10-02] MEDS: METOPROLOL TARTRATE 25 MG TABLET PO SCH ×2 (09:18→21:27)
[2019-10-02] MEDS: BICALUTAMIDE 50 MG TABLET PO SCH (09:18)
[2019-10-02] MEDS: TAMSULOSIN 0.4 MG CAPSULE PO SCH (09:18)
[2019-10-02] MEDS: PANTOPRAZOLE 40 MG TABLET PO SCH (09:18)
[2019-10-02] MEDS: THEOPHYLLINE ER (24 HR) 400 MG CAPSULE PO SCH (09:18)
[2019-10-02] MEDS: cefTRIAXone 1,000 MG in SYRINGE 1 EACH IV SCH (10:59)
[2019-10-02] MEDS: AZITHROMYCIN INJ 500 MG in SODIUM CHLORIDE 0.9% 250 ML IV SCH (10:59)
[2019-10-02] MEDS: ROSUVASTATIN 20 MG TABLET PO SCH (21:27)
[2019-10-02] MEDS: ENOXAPARIN 40 MG/0.4 ML SYRINGE SUBCUT SCH (21:27)
[2019-10-02] MEDS: ASPIRIN EC 81 MG TABLET PO SCH (21:27)
[2019-10-03] MEDS: ALBUTEROL/IPRATROPIUM 3 ML NEB RESP TX SCH ×4 (00:05→20:00)
[2019-10-03] MEDS: methylPREDNISolone SOD SUC 125 MG/2 ML VIAL IV SCH ×2 (03:16→10:10)
[2019-10-03] MEDS: SODIUM CHLOR 0.45% KCL 20 MEQ 20 MEQ/1,000 ML BAG IV SCH ×2 (07:25→22:27)
[2019-10-03] MEDS: BICALUTAMIDE 50 MG TABLET PO SCH (10:11)
[2019-10-03] MEDS: POTASSIUM CHLORIDE 20 MEQ TABLET PO SCH (10:11)
[2019-10-03] MEDS: TAMSULOSIN 0.4 MG CAPSULE PO SCH (10:11)
[2019-10-03] MEDS: THEOPHYLLINE ER (24 HR) 400 MG CAPSULE PO SCH (10:11)
[2019-10-03] MEDS: METOPROLOL TARTRATE 25 MG TABLET PO SCH ×2 (10:11→22:22)
[2019-10-03] MEDS: PANTOPRAZOLE 40 MG TABLET PO SCH (10:11)
[2019-10-03] MEDS: cefTRIAXone 1,000 MG in SYRINGE 1 EACH IV SCH (10:12)
[2019-10-03] MEDS: AZITHROMYCIN INJ 500 MG in SODIUM CHLORIDE 0.9% 250 ML IV SCH (10:12)
[2019-10-03] MEDS: ASPIRIN EC 81 MG TABLET PO SCH (22:18)
[2019-10-03] MEDS: ENOXAPARIN 40 MG/0.4 ML SYRINGE SUBCUT SCH (22:22)
[2019-10-03] MEDS: predniSONE 20 MG TABLET PO SCH (22:22)
[2019-10-03] MEDS: ROSUVASTATIN 20 MG TABLET PO SCH (22:22)
[2019-10-04] MEDS: ALBUTEROL/IPRATROPIUM 3 ML NEB RESP TX SCH ×5 (00:01→19:53)
[2019-10-04 05:15] LABS: Basophils % 0.1 % (0.0-0.8); Hematocrit 32.4 VOL% (42.0-52.0); Hemoglobin 10.6 GM/DL (14.0-18.0); Immature Granulocytes % 0.7 %; Immature Granulocytes Absolute 0.07 #; Lymphocytes # 0.3 10*3/uL (1.4-4.0); Lymphocytes % 3.2 % (21.2-54.2); Mean Corpuscular HGB Conc 32.7 GM/DL (32-36); Mean Corpuscular Volume 70.4 FL (87-102); Mean Platelet Volume 11.5 FL (9.6-12.0); Monocytes % 3.7 % (1.7-12.7); Neutrophils % 92.3 % (38.7-73.9); Platelet Count 214 T/CUMM (130-400); Red Cell Distribution Width 15.7 % (9.3-17.3); White Blood Count 10.4 T/CUMM (4-12)
[2019-10-04 06:03] LABS: Lymphocytes 4 % (20-55); Platelet Estimate Normal; Segmented Neutrophils 92 % (50-85); Total Cells Counted 100
[2019-10-04] MEDS ORDERED: guaiFENesin/CODEINE 5 ML LIQUID PO PRN (08:12)
[2019-10-04] MEDS: SODIUM CHLOR 0.45% KCL 20 MEQ 20 MEQ/1,000 ML BAG IV SCH (09:20)
[2019-10-04] MEDS: METOPROLOL TARTRATE 25 MG TABLET PO SCH ×2 (09:21→22:05)
[2019-10-04] MEDS: predniSONE 20 MG TABLET PO SCH ×2 (09:21→22:05)
[2019-10-04] MEDS: THEOPHYLLINE ER (24 HR) 400 MG CAPSULE PO SCH (09:21)
[2019-10-04] MEDS: POTASSIUM CHLORIDE 20 MEQ TABLET PO SCH (09:22)
[2019-10-04] MEDS: PANTOPRAZOLE 40 MG TABLET PO SCH (09:22)
[2019-10-04] MEDS: BICALUTAMIDE 50 MG TABLET PO SCH (09:22)
[2019-10-04] MEDS: TAMSULOSIN 0.4 MG CAPSULE PO SCH (09:27)
[2019-10-04] MEDS: POTASSIUM CHLORIDE 20 MEQ TABLET PO PRN ×3 (09:27→14:30)
[2019-10-04] MEDS: AZITHROMYCIN INJ 500 MG in SODIUM CHLORIDE 0.9% 250 ML IV SCH (10:45)
[2019-10-04] MEDS: cefTRIAXone 1,000 MG in SYRINGE 1 EACH IV SCH (12:19)
[2019-10-04] MEDS ORDERED: FUROSEMIDE 40 MG/4 ML VIAL IV ONE (14:44)
[2019-10-04] MEDS: ENOXAPARIN 40 MG/0.4 ML SYRINGE SUBCUT SCH (22:05)
[2019-10-04] MEDS: ASPIRIN EC 81 MG TABLET PO SCH (22:05)
[2019-10-04] MEDS: ROSUVASTATIN 20 MG TABLET PO SCH (22:05)
[2019-10-05] MEDS: ALBUTEROL/IPRATROPIUM 3 ML NEB RESP TX SCH ×3 (01:08→13:33)
[2019-10-05] MEDS ORDERED: AZITHROMYCIN 250 MG TABLET PO SCH (09:00)
[2019-10-05] MEDS: predniSONE 20 MG TABLET PO SCH (09:04)
[2019-10-05] MEDS: METOPROLOL TARTRATE 25 MG TABLET PO SCH (09:04)
[2019-10-05] MEDS: PANTOPRAZOLE 40 MG TABLET PO SCH (09:04)
[2019-10-05] MEDS: BICALUTAMIDE 50 MG TABLET PO SCH (09:04)
[2019-10-05] MEDS: TAMSULOSIN 0.4 MG CAPSULE PO SCH (09:04)
[2019-10-05] MEDS: POTASSIUM CHLORIDE 20 MEQ TABLET PO SCH (09:04)
[2019-10-05] MEDS: THEOPHYLLINE ER (24 HR) 400 MG CAPSULE PO SCH (09:04)
[2019-10-05 11:56] VITALS: BP 126/76
[2019-10-05] MEDS: cefTRIAXone 1,000 MG in SYRINGE 1 EACH IV SCH (12:23)
[2019-10-05] MEDS ORDERED: LEVOFLOXACIN 500 MG TABLET PO SCH (21:00)
== END 2019-10-05 16:23 | disposition home or self-care (01) | DRG 190 ==
LOC: N.ED 17:19 → N.EDINP 20:08 → SUATTDRO 20:08 → N.5E 21:26
PROVIDERS: ADMIT Emergency Medicine; ATTEND Hospitalist